=== PATIENT | male | born 2000 | race Caucasian/White ===

== ENCOUNTER 2024-10-29 23:21 | Emergency (ER) | payer OTHER ==
[~2024-10-29] VITALS: Ht 172.7 cm; Wt 74.6 kg
[2024-10-29 23:33] VITALS: O2SAT 99
[2024-10-30 00:35] LABS: BASOPHILS % 0.6 % (0.0-2.0); EOSINOPHILS % 1.5 % (0.0-5.0); HEMATOCRIT. 49.3 % (42.0-52.0); HEMOGLOBIN. 16.7 g/dL (14.0-18.0); LYMPHOCYTES % 28.9 % (20.0-50.0); MEAN PLATELET VOLUME 8.2 fl (7.4-10.4); MONOCYTES % 8.8 % (2.0-8.0); NEUTROPHILS % 60.2 % (40.0-76.0); PLATELET 262 x1000/uL (130-400); RED BLOOD CELL COUNT 5.73 mill/uL (4.7-6.1); RED CELL DISTRIBUTION WIDTH 13.4 % (11.6-14.6)
[2024-10-30] MEDS: ONDANSETRON 4MG ODT PO ONE (00:38)
[2024-10-30] MEDS: KETOROLAC 15MG/ML VIAL IM ONE (00:39)
[2024-10-30 00:48] LABS: CREATININE 1.1 mg/dL (0.6-1.3); UREA NITROGEN BLOOD 5 mg/dL (9-23)
[2024-10-30 00:50] LABS: ASPARTATE AMINOTRANSFERASE 18 IU/L (<34); BILIRUBIN DIRECT 0.2 mg/dL (<=3.0); BILIRUBIN TOTAL 0.5 mg/dL (0.1-1.0); PROTEIN TOTAL 7.6 g/dL (6.0-8.3)
[2024-10-30] MEDS ORDERED: FAMO-135 MT (00:56)
[2024-10-30] MEDS ORDERED: ACET-2708 MT (00:56)
[2024-10-30 01:20] VITALS: BP 118/80; PULSE 104; RESP 14; TEMP 36.8; O2SAT 96
== END 2024-10-30 01:21 | disposition home or self-care (01) ==
LOC: ER 23:21
DX: R10.13 Epigastric pain (principal); R11.2 Nausea with vomiting, unspecified; Z79.899 Other long term (current) drug therapy
CPT/HCPCS: 36415; 76705; 99284; 80076; 80048; 83690; 85025; 96372; Q0162; J1885; Z7610